=== PATIENT | male | born 1960 | race Caucasian/White ===

== ENCOUNTER 2019-10-17 10:55 | Emergency (ER) | payer MEDICAID ==
[~2019-10-17] VITALS: Ht 175.3 cm; Wt 105.0 kg
[2019-10-17] MEDS ORDERED: normal saline 1000ML IV soln IVB ONE (12:15)
[2019-10-17] MEDS ORDERED: ketorolac tromethamine 15mg/ml inj. IV ONE (12:15)
[2019-10-17] MEDS ORDERED: meclizine 12.5mg tablet PO ONE (12:15)
[2019-10-17 12:42] LABS: BASOPHILS # (AUTO) 0.1 X10'3 (0-0.2); BASOPHILS % (AUTO) 1.2 % (0-1); EOSINOPHILS # (AUTO) 0.1 X10'3 (0-0.9); HEMATOCRIT 50.4 % (42.0-52.0); HEMOGLOBIN 17.4 g/dl (14.0-17.9); LYMPHOCYTES # (AUTO) 2.1 X10'3 (1.1-4.8); LYMPHOCYTES % (AUTO) 21.6 % (21-51); MEAN CORPUSCULAR HEMOGLOBIN 31.7 PG (27.0-31.0); MEAN CORPUSCULAR HGB CONC 34.4 g/dL (33.0-36.5); MEAN CORPUSCULAR VOLUME 92.2 FL (78-98); MONOCYTES # (AUTO) 0.4 X10'3 (0-0.9); MONOCYTES % (AUTO) 3.9 % (2-12); NEUTROPHILS % (AUTO) 72.3 % (42-75); PLATELET COUNT 224 X10'3 (140-440); RED BLOOD COUNT 5.47 X10'6 (4.70-6.10); RED CELL DISTRIBUTION WIDTH 13.5 % (11.5-14.5); WHITE BLOOD COUNT 9.6 X10'3 (4.5-11.0)
[2019-10-17 12:53] LABS: ALANINE AMINOTRANSFERASE 38 U/L (12-78); ALBUMIN 3.8 G/DL (3.4-5.0); ALBUMIN/GLOBULIN RATIO 0.9 (1.1-1.5); ALKALINE PHOSPHATASE 70 IU/L (46-116); ANION GAP 8 (8-16); ASPARTATE AMINO TRANSFERASE 30 U/L (10-37); BILIRUBIN,TOTAL 0.6 MG/DL (0.1-1.0); BLOOD UREA NITROGEN 14 MG/DL (7-18); BUN/CREATININE RATIO 12.6 (5.4-32.0); CALCIUM 8.6 MG/DL (8.5-10.1); CHLORIDE 100 MMOL/L (99-107); CREATININE 1.11 MG/DL (0.60-1.10); GLUCOSE 246 MG/DL (70-104); POTASSIUM 3.6 MMOL/L (3.5-5.1); SODIUM 134 MMOL/L (135-145); TOTAL CARBON DIOXIDE 26.4 MMOL/L (24-32); TOTAL PROTEIN 8.2 G/DL (6.4-8.2); eGFR 67 ML/MIN
[2019-10-17 13:04] LABS: CLARITY,URINE CLEAR (Clear); COLOR,URINE YELLOW (Yellow); GLUCOSE, URINE 500 mg/dl (Neg); KETONES,URINE 15 mg/dl (Neg); LEUKOCYTE ESTERASE ,URINE NEGATIVE (Neg); NITRITES, URINE NEGATIVE (Neg); OCCULT BLOOD,URINE NEGATIVE (Neg); PROTEIN,URINE TRACE mg/dl (Neg)
[2019-10-17 13:10] LABS: UA COLLECTION TYPE CLN CATCH MIDSTREAM
[2019-10-17 13:11] LABS: BACTERIA,URINE NONE SEEN /HPF (Neg); HYALINE CASTS 0-3 /LPF (NEGATIVE); MUCUS STRANDS MODERATE /LPF (Neg); RBC,URINE NONE SEEN /HPF (0-2); SQUAMOUS EPITHELIAL CELL,UR FEW /LPF (FEW); WBC,URINE 0-4 /HPF (0-4)
[2019-10-17] MEDS ORDERED: MECL-183 PO (13:24)
[2019-10-17 13:37] VITALS: BP 161/87
== END 2019-10-17 13:40 | disposition home or self-care (01) ==
LOC: ER 10:58
DX: E86.0 Dehydration (principal); R42 Dizziness and giddiness; R20.0 Anesthesia of skin; R11.2 Nausea with vomiting, unspecified; Z79.899 Other long term (current) drug therapy
CPT/HCPCS: 36415; 80053; 81001; 85025; 96361; 96374; 99283; J1885; J7030; J8597

== ENCOUNTER 2022-07-08 10:46 | Inpatient (IN) | payer MEDICAID, OTHER, SELFPAY ==
[~2022-07-08] VITALS: Ht 175.3 cm; Wt 111.4 kg
[~2022-07-08 10:46] MED LIST: MECL-226 PO
[2022-07-08] MEDS ORDERED: dexamethasone sod phosphate 10mg/ml inj IV STA (11:13)
[2022-07-08] MEDS ORDERED: normal saline 1000ML IV soln IVB ONE (11:15)
[2022-07-08] MEDS ORDERED: ondansetron/PF 4mg/2ml inj IV ONE (11:15)
[2022-07-08 11:55] LABS: BASOPHILS # (AUTO) 0.1 X10'3 (0-0.2); BASOPHILS % (AUTO) 0.6 % (0-1); EOSINOPHILS % (AUTO) 0.3 % (0-6); HEMATOCRIT 51.3 % (42.0-52.0); HEMOGLOBIN 17.4 g/dl (14.0-17.9); LYMPHOCYTES # (AUTO) 1.4 X10'3 (1.1-4.8); LYMPHOCYTES % (AUTO) 11.8 % (21-51); MEAN CORPUSCULAR HEMOGLOBIN 31.7 PG (27.0-31.0); MEAN CORPUSCULAR HGB CONC 33.9 g/dL (33.0-36.5); MEAN CORPUSCULAR VOLUME 93.5 FL (78-98); MONOCYTES # (AUTO) 0.6 X10'3 (0-0.9); NEUTROPHILS # (AUTO) 9.7 X10'3 (1.8-7.7); NEUTROPHILS % (AUTO) 82.3 % (42-75); PLATELET COUNT 227 X10'3 (140-440); RED BLOOD COUNT 5.49 X10'6 (4.70-6.10); RED CELL DISTRIBUTION WIDTH 13.5 % (11.5-14.5); WHITE BLOOD COUNT 11.8 X10'3 (4.5-11.0)
[2022-07-08 12:10] LABS: ALANINE AMINOTRANSFERASE 66 U/L (12-78); ALBUMIN 4.1 G/DL (3.4-5.0); ALKALINE PHOSPHATASE 68 IU/L (46-116); ANION GAP 10 (8-16); ASPARTATE AMINO TRANSFERASE 42 U/L (10-37); BILIRUBIN,TOTAL 0.7 MG/DL (0.1-1.0); BLOOD UREA NITROGEN 14 MG/DL (7-18); BUN/CREATININE RATIO 12.3 (10.0-20.0); CALCIUM 9.2 MG/DL (8.5-10.1); CHLORIDE 98 MMOL/L (99-107); CREATININE 1.14 MG/DL (0.60-1.10); GLUCOSE 224 MG/DL (70-104); SODIUM 135 MMOL/L (135-145); TOTAL CARBON DIOXIDE 26.7 MMOL/L (24-32); TOTAL PROTEIN 8.4 G/DL (6.4-8.2); eGFR 65 ML/MIN
[2022-07-08] MEDS ORDERED: aspirin 81mg tab.chew PO ONE (12:20)
[2022-07-08] MEDS ORDERED: iohexol 350MG/ML 100ml bottle IV ONE (12:47)
[2022-07-08 12:52] LABS: CLARITY,URINE CLEAR (Clear); COLOR,URINE YELLOW (Yellow); GLUCOSE, URINE 250 mg/dl (Neg); KETONES,URINE 15 mg/dl (Neg); LEUKOCYTE ESTERASE ,URINE NEGATIVE (Neg); NITRITES, URINE NEGATIVE (Neg); OCCULT BLOOD,URINE NEGATIVE (Neg); PROTEIN,URINE NEGATIVE (Neg); UROBILINOGEN,URINE 0.2 E.U/dL (0.2-1.0)
[2022-07-08 12:54] LABS: UA COLLECTION TYPE CLN CATCH MIDSTREAM
[2022-07-08] MEDS ORDERED: NO HOME MEDS (13:30)
[2022-07-08] MEDS ORDERED: HYDROcodone/acetaminophen 5mg/325mg tablet PO PRN (17:30)
[2022-07-08] MEDS ORDERED: acetaminophen 325mg tablet PO PRN ×2 (17:30)
[2022-07-08] MEDS ORDERED: morphine 2 MG/ML inj. syringe IV PRN ×2 (17:30)
[2022-07-08] MEDS ORDERED: mag hydrox/Alum hydrox/simeth 30ml oral suspension PO PRN (17:30)
[2022-07-08] MEDS ORDERED: magnesium hydroxide 30ml (MOM) UD suspension PO PRN (17:30)
[2022-07-08] MEDS ORDERED: ondansetron/PF 4mg/2ml inj IV PRN (17:30)
--- NOTE | 2022-07-08 18:04 | NUR ---
BP 221/107. Per Dr. Reshma RN to order and administer IV labetolol 10 mg. RN ordered via VORB. YOUNG to administer. Addendum: 07/08/22 at 1837 by JEREMY BP decreased to 173/86. HR 73 bpm.
[2022-07-08] MEDS ORDERED: labetalol 20mg/4ml (5mg/ml) syringe IV ONE (18:05)
[2022-07-08] MEDS ORDERED: labetalol 20mg/4ml (5mg/ml) syringe IV PRN (18:10)
--- NOTE | 2022-07-08 19:20 | NUR ---
REPORT CALLED TO FLOOR NURSE PT TX TO ROOM 4021A BY TECH
[2022-07-08 19:30] VITALS: BP 189/92
[2022-07-08] MEDS ORDERED: DEXTROSE 15 GM of carb/4 tabs (each vial/BOTTLE has 4 tablets) PO PRN ×2 (20:20)
[2022-07-08] MEDS ORDERED: MESSAGE TO PHARMACY PO ONE (20:20)
[2022-07-08] MEDS ORDERED: dextrose 50%-water 50ml dispensing syringe IV PRN ×2 (20:20)
[2022-07-08] MEDS ORDERED: glucagon, human recombinant 1mg kit SUBCUT PRN (20:20)
[2022-07-08] MEDS: docusate sod 100mg capsule PO SCH (21:00)
[2022-07-08] MEDS: insulin glargine (Lantus) pen - multi-dose SQ SCH (22:27)
[2022-07-08 23:12] VITALS: BP 185/95
[2022-07-08 23:37] VITALS: BP 183/102
[2022-07-09 04:00] VITALS: BP 187/87
[2022-07-09 06:12] LABS: BASOPHILS % (AUTO) 0.2 % (0-1); EOSINOPHILS % (AUTO) 0 % (0-6); HEMOGLOBIN 17.1 g/dl (14.0-17.9); LYMPHOCYTES # (AUTO) 1.9 X10'3 (1.1-4.8); LYMPHOCYTES % (AUTO) 14.4 % (21-51); MEAN CORPUSCULAR HEMOGLOBIN 31.9 PG (27.0-31.0); MEAN CORPUSCULAR HGB CONC 34.3 g/dL (33.0-36.5); MEAN CORPUSCULAR VOLUME 93.1 FL (78-98); MONOCYTES # (AUTO) 0.6 X10'3 (0-0.9); MONOCYTES % (AUTO) 4.7 % (2-12); NEUTROPHILS # (AUTO) 10.6 X10'3 (1.8-7.7); NEUTROPHILS % (AUTO) 80.7 % (42-75); PLATELET COUNT 245 X10'3 (140-440); RED BLOOD COUNT 5.37 X10'6 (4.70-6.10); RED CELL DISTRIBUTION WIDTH 13.4 % (11.5-14.5); WHITE BLOOD COUNT 13.1 X10'3 (4.5-11.0)
[2022-07-09 06:22] LABS: ALBUMIN 3.6 G/DL (3.4-5.0); ANION GAP 14 (8-16); BLOOD UREA NITROGEN 16 MG/DL (7-18); CALCIUM 8.5 MG/DL (8.5-10.1); CHLORIDE 100 MMOL/L (99-107); CHOL/HDL RATIO 3.1 (0.00-4.99); CHOLESTEROL 176 MG/DL (0-200); CREATININE 1.14 MG/DL (0.60-1.10); GLUCOSE 189 MG/DL (70-104); HDL CHOLESTEROL 57 MG/DL (35-60); LDL CHOLESTEROL 102 MG/DL (50-100); POTASSIUM 3.5 MMOL/L (3.5-5.1); SODIUM 137 MMOL/L (135-145); TRIGLYCERIDES 69 MG/DL (20-135); eGFR 65 ML/MIN
[2022-07-09] MEDS: docusate sod 100mg capsule PO SCH ×2 (07:32→20:00)
[2022-07-09 08:00] VITALS: BP 191/87
[2022-07-09] MEDS ORDERED: aspirin 81mg, enteric-coated 1 TAB TABLET.DR PO SCH (08:00)
[2022-07-09] MEDS ORDERED: atorvastatin 20mg tablet PO SCH (08:00)
[2022-07-09] MEDS: insulin Lispro (HumaLOG) vial - multi-dose SQ SCH ×3 (09:42→18:49)
[2022-07-09] MEDS ORDERED: GLYB5TAB7 PO (09:51)
[2022-07-09] MEDS ORDERED: ASPI-1071 PO (09:51)
[2022-07-09] MEDS ORDERED: ATOR20TA66 PO (09:51)
[2022-07-09] MEDS ORDERED: LISI5TAB22 PO (09:52)
[2022-07-09 12:00] VITALS: BP 180/84
--- NOTE | 2022-07-09 14:35 | NUR ---
Initial: Pt admit for CVA. Noted lipid panel WNL with the exception of slightly elevated LDL 102. Current A1c 9.0% with no known PMH DM. TC to RN who confirms pt has been informed about new T2DM by physician. Pt seen at bedside for written and verbal DM nutrition therapy education. Pt verbalized understanding and denied questions at this time. RD contact information provided and pt encouraged to reach out if needed. Pt currently on a CHO controlled diet and eating poorly, documented with 0% PO intake of breakfast. Lunch visible during RD visit, noted roughly 50% of protein consumed and pt reports he ate the cookies. Pt reports poor PO intake [place] so he is taking it easy with meals and states food doesn't look very appealing. Food preferences were obtained and d/w dietary, see below. LBM 07/08 per I&O. Will continue to follow. Recommendations: 1) Continue CHO controlled diet 2) [place] food preferences: no broccoli or mushrooms 3) Monitor need for ONS 4) Routine bowel care 5) Scaled weight this admit; subsequent weekly scaled weights Addendum: 07/09/22 at [address] Amended: Links added.
--- NOTE | 2022-07-09 15:21 | NUR ---
RN genie Coates Rn [phone] Patient in [address] [place] is c/o tightness bilaterally below rib cage, indigestion and some pain radiating up left side chest. We are getting an EKG now, to make you aware! Thank you!
--- NOTE | 2022-07-09 15:36 | NUR ---
patient c/o tightness under rib cage bilateral sides, indigestion and pain going up into left side of chest. MD Justice paged and talked to. EKG done at bedside. Patient states pain is improving. Will continue to monitor.
[2022-07-09 16:00] VITALS: BP 176/88
[2022-07-09 18:00] VITALS: BP 176/88
--- NOTE | 2022-07-09 18:50 | NUR ---
Pt hesitant to receive insulin before leaving due to reported reaction of chest tightness yesterday. Gave two units and monitored patient for reaction before discharge. Patient reported pounding in head, weakness, and lightheadedness when standing to change. Checked blood sugar and vitals- all normal. Patient reports improvement and ready to discharge at 2044.
[2022-07-09 20:00] VITALS: BP 168/63
[2022-07-09] MEDS: insulin glargine (Lantus) pen - multi-dose SQ SCH (20:40)
--- NOTE | 2022-07-09 21:00 | NUR ---
went over DC papers, removed PIV and tele, went over medications and Diabetic Survival Skills. Patient taken down to lobby for ride in w/c
== END 2022-07-09 21:15 | disposition home or self-care (01) | DRG 66 ==
LOC: ER 10:46 → ED HOLD 17:38 → ORTHO 4S 19:19
PROVIDERS: ADMIT Internal Medicine; ATTEND Internal Medicine
PROC: B3251ZZ Computerized Tomography (CT Scan) of Bilateral Common Carotid Arteries using Low Osmolar Contrast (ICD-10-PCS; principal; 2022-07-08)
PROC: B32G1ZZ Computerized Tomography (CT Scan) of Bilateral Vertebral Arteries using Low Osmolar Contrast (ICD-10-PCS; 2022-07-08)
PROC: B32R1ZZ Computerized Tomography (CT Scan) of Intracranial Arteries using Low Osmolar Contrast (ICD-10-PCS; 2022-07-08)
PROC: B3281ZZ Computerized Tomography (CT Scan) of Bilateral Internal Carotid Arteries using Low Osmolar Contrast (ICD-10-PCS; 2022-07-08)
DX: I63.542 Cerebral infarction due to unspecified occlusion or stenosis of left cerebellar artery (principal); R27.0 Ataxia, unspecified; R63.0 Anorexia; R29.700 NIHSS score 0; E78.5 Hyperlipidemia, unspecified; E11.9 Type 2 diabetes mellitus without complications; I10 Essential (primary) hypertension; Z79.82 Long term (current) use of aspirin; Z79.84 Long term (current) use of oral hypoglycemic drugs; Z79.899 Other long term (current) drug therapy; Z88.0 Allergy status to penicillin; Z68.36 Body mass index [BMI] 36.0-36.9, adult
CPT/HCPCS: 36415; 70450; 70496; 70498; 70551; 73560; 80048; 80053; 80061; 81003; 82948; 83036; 84484; 85025; 85651; 87081; 92508; 92616; 93306; 97161; 99285; G0378; J1100; J1815; J3490; J7030; Q9967